=== PATIENT | female | born 1945 | race Two or more races ===

== ENCOUNTER 2024-04-27 06:00 | Day surgery (SDC) | payer OTHER ==
[2024-04-19 09:15] LABS: HEMATOCRIT 34.9 % (36.0-45.00); HEMOGLOBIN 11.9 g/dL (12.0-15.00); MEAN CELL VOLUME 94.8 fL (80.00-100.00); MEAN CORPUSCULAR HEMOGLOBIN 32.3 pg (27.00-32.0); MEAN CORPUSCULAR HGB CONC 34.1 g/dl (32.0-36.0); PLATELET COUNT 180 K/uL (150-450); RED BLOOD COUNT 3.69 M/uL (4.00-6.00); RED CELL DISTRIBUTION WIDTH 13.9 % (11.5-14.5)
[2024-04-19 09:18] LABS: PH,URINE 5.5 (5.0-8.0); URINE APPEARANCE Clear; URINE BILIRRUBIN Negative (NEGATIVE); URINE BLOOD Negative; URINE COLOR Yellow; URINE KETONE Negative (NEGATIVE); URINE LEUKOCYTE Small; URINE NITRATE Negative; URINE PROTEIN Trace (NEGATIVE); URINE UROBILINOGEN 0.2 E.U./dl
[2024-04-19 09:20] LABS: URINE BACTERIA 35.2 uL (0.0-1933); URINE EPITHELIAL CELLS 16.8 uL (0.0-38.8); URINE RBC 4.1 uL (0.0-20.8)
[2024-04-19 09:46] LABS: URINE CAST 0.15 uL (0.0-1.40); URINE GLUCOSE 100 MG/DL (NEGATIVE)
[2024-04-19 09:57] LABS: INR 0.95; PARTIAL THROMBOPLASTIN TIME 24.5 SECONDS (22.0-34.0); PROTHROMBIN TIME 10.4 SECONDS (9.0-11.5)
[2024-04-19 10:32] LABS: CALCIUM 9.7 mg/dL (8.5-10.1); CREATININE SERUM 1.55 mg/dL (0.55-1.02); GFR 32.42; POTASSIUM 3.25 mEq/L (3.5-5.1)
[~2024-04-27 06:00] MED LIST: ATACAND HCT 161 EACH; LIPITOR20 MG; METOPROLOL SUCC50 MG; NORVASC5 MG; RECLAST; SYNTHROID88 MCG
[2024-04-27] MEDS ORDERED: METRONIDAZOLE/SODIUM CHLORIDE 500 MG/100 ML PIGGYBACK IV ONE (10:30)
[2024-04-27] MEDS ORDERED: CEFTRIAXONE SODIUM 2,000 MG VIAL IV ONE (10:30)
[2024-04-27] MEDS ORDERED: ENOXAPARIN SODIUM 40 MG/0.4 ML SYRINGE SUBCUTANEO ONE (10:30)
[2024-04-27] MEDS ORDERED: BUPIVACAINE HCL 30 ML VIAL IJ ONE (10:30)
[2024-04-27] MEDS ORDERED: PERCOCET 5-3251 EACH PO (11:37)
[2024-04-27] MEDS ORDERED: NEURONTIN300 MG PO (11:37)
[2024-04-27] MEDS ORDERED: POLY119PG PO (11:37)
== END 2024-04-27 14:45 | disposition home or self-care (01) ==
LOC: CIR.AMB 06:00
PROVIDERS: ATTEND Surgery
DX: K40.90 Unilateral inguinal hernia, without obstruction or gangrene, not specified as recurrent (principal)
CPT/HCPCS: 49650; C1781